=== PATIENT | female | born 1940 | race Caucasian/White ===

== ENCOUNTER 2017-08-13 14:32 | Emergency (ER) | payer MEDICARE, OTHER ==
--- NOTE | 2017-08-13 14:37 | ER Document Report ---
ED Fall - General Chief Complaint: Fall Stated Complaint: FALL/FACE INJURY Time Seen by Provider: 08/13/17 14:37 Notes: This is a 76-year-old female patient with some dementia who was found in her carport. Does not remember what happens. She does know that she fell but does not know how long she was down. Denies loss of consciousness. Recent diagnosis of dementia was given. Patient complaining of pain in her nose and forehead as well as her right wrist. Denies any other pain. States that she had difficulty getting up but denies any pain in her hips, back, chest, legs. Patient was evaluated by EMS. Collar was placed. Patient was transported by EMS from [facility] in stable condition. Denies any other associated signs or symptoms. TRAVEL OUTSIDE OF THE [place] IN LAST 30 DAYS: No - Related data Allergies/Adverse Reactions: No Known Allergies Allergy (Unverified 08/13/17 16:07) Past Medical History - General Information source: Patient, Relative - Social History Smoking Status: Never Smoker Family History: Reviewed & Not Pertinent Endocrine Medical History: Reports: Other - Sjogren's disease Review of Systems - Review of Systems Constitutional: No symptoms reported EENT: No symptoms reported, Other - Pain in the forehead, pain on the nose lacerations Cardiovascular: No symptoms reported Respiratory: No symptoms reported Gastrointestinal: No symptoms reported Genitourinary: No symptoms reported Female Genitourinary: No symptoms reported Musculoskeletal: No symptoms reported, Other - Pain and deformity on the right wrist Skin: No symptoms reported, Other - Lacerations mentioned above Hematologic/Lymphatic: No symptoms reported Neurological/Psychological: No symptoms reported, Other - Dementia new diagnosis Physical Exam - Vital signs Interpretation: Normal - General General appearance: Appears well, Alert - HEENT Head: Normocephalic, Atraumatic Eyes: Normal Conjunctiva: Normal Extraocular movements intact: Yes Pupils: PERRL Sinus: Other - There is a contusion with laceration on the frontal's forehead scalp Nasal: Other - There is a 1 cm superficial linear laceration across the bridge of the nose Mouth/Lips: Normal Mucous membranes: Normal Pharynx: Normal Neck: Normal - Respiratory Respiratory status: No respiratory distress Chest status: Nontender Breath sounds: Normal Chest palpation: Normal - Cardiovascular Rhythm: Regular Heart sounds: Normal auscultation Murmur: No - Abdominal Inspection: Normal Distension: No distension Bowel sounds: Normal Tenderness: Nontender Organomegaly: No organomegaly - Back Back: Normal, Nontender - Extremities General upper extremity: Tender, Edema, Normal color, Normal temperature, Other - There is obvious deformity noted at the right distal radius and ulna. Radial and ulnar pulses intact. Left upper extremity normal.. No: Normal ROM General lower extremity: Normal inspection, Nontender, Normal color, Normal ROM , Normal temperature, Normal weight bearing. No: Jermaine's sign - Neurological Neuro grossly intact: Yes Cognition: Normal Orientation: AAOx4 Kendall Coma Scale Eye Opening: Spontaneous Amanda Coma Scale Verbal: Oriented Kendall Coma Scale Motor: Obeys Commands Amanda Coma Scale Total: 15 Speech: Normal Motor strength normal: LUE, RUE, LLE, RLE Sensory: Normal - Psychological Associated symptoms: Normal affect, Normal mood - Skin Skin Temperature: Warm - Laceration noted to the nose and forehead Skin Moisture: Dry Skin Color: Normal Course - Re-evaluation Re-evalutation: 08/13/17 14:[address] head, face and C-spine. X-ray right wrist. Labs. Tetanus update , patient denies any pain at this time. Will likely need some laceration repair work done. 08/13/17 18:48 Lacerations were repaired to the forehead and the nasal bridge. Splint was applied to the right upper extremity. Reevaluation after splint placement reveals good capillary refill and moving fingers. Sensation intact. No complications. Will give follow-up information for orthopedic surgery at our facility. Have advised to have somebody with the patient at all times for the next 24 hours to check neuro checks. Family is comfortable with this plan. They have a caregiver that spends the whole day with her and they have somebody that comes and checks on her at night as well. They will continue to evaluate her at home. Instructed to have the lacerations evaluated in 5-7 days for suture removal. Due to the fact that there is a fracture of the nasal bone will give follow-up information for ENT as well. - Laboratory Result Diagrams: 08/13/17 16:35 08/13/17 16:35 Laboratory results interpreted by me: 08/13/17 08/13/17 08/13/17 15:33 16:35 16:35 Plt Count 149 L Seg Neutrophils % 79.3 H Lymphocytes % 10.0 L AST 78 H ALT 61 H Creatine Kinase 944 H CK-MB (CK-2) Urine Ketones TRACE H 08/13/17 16:35 Plt Count Seg Neutrophils % Lymphocytes % AST ALT Creatine Kinase CK-MB (CK-2) 6.75 H Urine Ketones - Diagnostic Test Radiology reviewed: Reports reviewed Procedures - Laceration/Wound Repair Face Time completed: 18:45 Wound length (cm): 1 Wound's Depth, Shape: Flap Laceration pre-procedure: Sterile PPE donned, Shur-Clens applied Anesthetic type: 1% Lidocaine Volume Anesthetic (mLs): 250 Wound explored: Clean, No foreign body removed Wound Debrided: Moderate Wound Repaired With: Sutures Suture Size/Type: 5:0, Ethilon - 3 sutures placed. Laceration was present across the nasal bridge. Comp occasions. Patient tolerated procedure well Number of Sutures: 3 Post-procedure wound care: Sterile dressing applied Head Time completed: 18:46 Wound length (cm): 1.5 Wound's Depth, Shape: Flap, Stellate Laceration pre-procedure: Chloraprep applied, Sterile drapes applied, Shur- Clens applied Anesthetic type: 1% Lidocaine Volume Anesthetic (mLs): 5 Wound explored: Clean, No foreign body removed Irrigated w/ Saline (mLs): 250 Wound Debrided: Moderate Wound Repaired With: Sutures Suture Size/Type: 5:0, Ethilon Number of Sutures: 6 Layer Closure?: No Post-procedure wound care: Sterile dressing applied Discharge - Discharge Clinical Impression: Facial laceration, Fracture of right distal radius, Forehead laceration, Nasal fracture Condition: Good Disposition: HOME, SELF-CARE Instructions: Antibiotic Ointment Protection ([facility]), Laceration Care ([facility]), Tetanus Immunization Given ([facility]) Additional Instructions: Laceration Care Your laceration has been sutured to keep the skin edges aligned during healing. The time of suture removal depends on the nature and location of your cut. Please follow the care instructions the doctor has outlined for you and return for further care, according to the schedule you've been given. Keep the wound and dressing clean. Unless you were told otherwise, you may shower daily, blotting the wound dry with a clean, unused towel. At other times, If the dressing gets wet or blood soaked, remove it and blot the wound dry, then reapply a new dressing. Unless you were instructed otherwise, dressings should be changed at least daily. If any signs of infection occur (swelling, redness, increasing tenderness, red streaks, tender lumps in the armpit or groin above the laceration, or fever) , see the doctor immediately. Fracture of the Nose You have a fractured nose. The examination shows no evidence that the nose needs to be "set" or operated on. However, the physician must recheck the nose once the swelling has decreased. The final decision about straightening of the bones or surgery can be made once the swelling resolves. This usually takes three to five days. Rest in a reclining chair. Cold pack the nose for the next 24 to 36 hours. Do not blow the nose. This may increase the swelling or cause further bleeding. If you have painful swelling inside the nose or exquisite tenderness when the tip of the nose is touched, you should call the doctor at once or return for re-evaluation. You should also contact the doctor if you develop fever, purulent nasal drainage, increasing pain in the face, or problems with vision. You have a nasal bone fracture with a laceration. It will be important that you follow-up with ENT if the laceration and the wound is not healing well. Please contact Dr. Salas's office at [facility] for follow-up if needed Fractured Radius The bone called the radius is fractured. This type of fracture is typically caused by falling onto the outstretched hand. The fracture is not serious, however, and should heal well with adequate protection. Your physician 's evaluation shows the bone is in good position to heal. A cast or splint is used to protect the fracture. For the first few days after the injury, the arm should be elevated and ice packed. Healing takes from three to eight weeks, depending on the age of the patient and the seriousness of the fracture. Your doctor has explained the treatment plan. It's important that you follow up as instructed to prevent complications. Call the doctor or return at once if severe pain or swelling occur, or if the hand becomes numb, swollen, or discolored. It will be very important that you follow-up with an orthopedic surgeon. Please call Tuesday to schedule a urgent follow-up. Prescriptions: Cephalexin Monohydrate [Keflex 500 mg Capsule] 500 mg PO Q6H 5 Days #20 capsule Referrals: MARIA E YEH MD [Primary Care Provider] - Follow up as needed [facility] [Provider Group] - Follow up as needed KRISTOPHER BRICE DO [ASSOCIATE] - Follow up as needed
[2017-08-13] MEDS ORDERED: DIPH/PERTUSS(ACELL)/TETANUS VAC/PF 0.5 ML SYR (>=10YO) IM ONE (14:52)
--- NOTE | 2017-08-13 15:24 | RADIOLOGY REPORT (SQ) ---
EXAM DESCRIPTION: CT HEAD WITHOUT COMPLETED DATE/TIME: 08/13/2017 3:16 pm REASON FOR STUDY: bed [address] wren s/p fall COMPARISON: None. TECHNIQUE: Axial images acquired through the brain without intravenous contrast. Images reviewed wi th bone, brain and subdural windows. Images stored on PACS. All CT scanners at this facility use dose modulation, iterative reconstruction, and/or weight based d osing when appropriate to reduce radiation dose to as low as reasonably achievable (ALARA). [facility]: Dose Right [facility]: CareDose [facility]: Dose Right [facility]: Teradose 4D [facility]: [employer] RADIATION DOSE: Up-to-date CT equipment and radiation dose reduction techniques were employed. CTDIv ol: 64.6 mGy. DLP: 1163 mGy-cm. mGy. LIMITATIONS: None. FINDINGS: VENTRICLES: Prominent. CEREBRUM: No masses. No hemorrhage. No midline shift. Areas of low density in the white matter mos t likely due to chronic micro-vascular ischemic change. No evidence for acute infarction. CEREBELLUM: No masses. No hemorrhage. No alteration of density. No evidence for acute infarction. EXTRAAXIAL SPACES: Mild age-related involutional change. No fluid collections. No masses. ORBITS AND GLOBE: No intra- or extraconal masses. Normal contour of globe without masses. CALVARIUM: No fracture. PARANASAL SINUSES: No fluid or mucosal thickening. SOFT TISSUES: Frontal scalp hematoma. OTHER: Right anterior nasal bone fracture. IMPRESSION: SCALP HEMATOMA. NO ACUTE INTRACRANIAL PROCESS. RIGHT ANTERIOR NASAL BONE FRACTURE. EVIDENCE OF ACUTE STROKE: NO. TECHNICAL DOCUMENTATION: JOB ID: [id number] Quality ID # 436: Final reports with documentation of one or more dose reduction techniques (e.g., Au tomated exposure control, adjustment of the mA and/or kV according to patient size, use of iterative reconstruction technique) 2010 [employer]- All Rights Reserved
--- NOTE | 2017-08-13 15:25 | RADIOLOGY REPORT (SQ) ---
EXAM DESCRIPTION: CT FACIAL AREA WITHOUT COMPLETED DATE/TIME: 08/13/2017 3:16 pm REASON FOR STUDY: bed [address] wren s/p fall COMPARISON: None. TECHNIQUE: Noncontrasted images through the facial bones and orbits windowed for bone and soft tissu e. Additional coronal and sagittal reconstructed images reviewed. All images stored on PACS. All CT scanners at this facility use dose modulation, iterative reconstruction, and/or weight based d osing when appropriate to reduce radiation dose to as low as reasonably achievable (ALARA). [facility]: Dose Right [facility]: CareDose [facility]: Dose Right [facility]: Teradose 4D [facility]: [employer] RADIATION DOSE: Up-to-date CT equipment and radiation dose reduction techniques were employed. CTDIv ol: 30.4 mGy. DLP: 536 mGy-cm. mGy. LIMITATIONS: None. FINDINGS: FACIAL BONES: Mildly displaced right anterior nasal bone fracture. Otherwise intact. ORBITS: Intact. No fracture. Symmetric intact globes and retroorbital soft tissues. PARANASAL SINUSES: Clear. No significant mucosal thickening, mass or fluid. No nasal polyps. Maxill fransisco sinus outlets are patent. SOFT TISSUES: Associated soft tissue swelling. INFERIOR BRAIN: Limited view. No acute findings. OTHER: No other significant finding. IMPRESSION: RIGHT ANTERIOR NASAL BONE FRACTURE. FACIAL BONE STRUCTURES OTHERWISE INTACT. TECHNICAL DOCUMENTATION: JOB ID: [id number] Quality ID # [id number]: Final reports with documentation of one or more dose reduction techniques (e.g., Au tomated exposure control, adjustment of the mA and/or kV according to patient size, use of iterative reconstruction technique) 2010 [employer]- All Rights Reserved
--- NOTE | 2017-08-13 15:25 | RADIOLOGY REPORT (SQ) ---
EXAM DESCRIPTION: CT CERVICAL SPINE WITHOUT COMPLETED DATE/TIME: 08/13/2017 3:16 pm REASON FOR STUDY: bed [address] wren s/p fall COMPARISON: None. TECHNIQUE: Axial images acquired through the cervical spine without intravenous contrast. Images re viewed with lung, soft tissue and bone windows. Reconstructed coronal and sagittal MPR images review ed. Images stored on PACS. All CT scanners at this facility use dose modulation, iterative reconstruction, and/or weight based d osing when appropriate to reduce radiation dose to as low as reasonably achievable (ALARA). [facility]: Dose Right [facility]: CareDose [facility]: Dose Right [facility]: Teradose 4D [facility]: [employer] RADIATION DOSE: Up-to-date CT equipment and radiation dose reduction techniques were employed. CTDIv ol: 7.6 mGy. DLP: 178 mGy-cm. mGy. LIMITATIONS: None. FINDINGS: ALIGNMENT: Anatomic. MINERALIZATION: Normal. VERTEBRAL BODIES: No fractures or dislocation. DISCS: Multilevel disc space narrowing with osteophytes. FACETS, LATERAL MASSES, POSTERIOR ELEMENTS: Facet arthropathy. No fractures. No dislocation. No ac ankit findings. HARDWARE: None in the spine. VISUALIZED RIBS: No fractures. LUNG APICES AND SOFT TISSUES: No significant or acute findings. OTHER: No other significant finding. IMPRESSION: CHRONIC DEGENERATIVE CHANGES. NO ACUTE FINDINGS. TECHNICAL DOCUMENTATION: JOB ID: [id number] Quality ID # 436: Final reports with documentation of one or more dose reduction techniques (e.g., Au tomated exposure control, adjustment of the mA and/or kV according to patient size, use of iterative reconstruction technique) 2010 [employer]- All Rights Reserved
--- NOTE | 2017-08-13 15:35 | RADIOLOGY REPORT (SQ) ---
EXAM DESCRIPTION: WRIST RIGHT 3 VIEWS COMPLETED DATE/TIME: 08/13/2017 3:28 pm REASON FOR STUDY: fall COMPARISON: None. NUMBER OF VIEWS: Three views. TECHNIQUE: AP, lateral, and oblique radiographic images acquired of the right wrist. LIMITATIONS: None. FINDINGS: MINERALIZATION: Normal. BONES: Comminuted intra-articular fracture of the distal radius with mild impaction and dorsal angula tion. Bones otherwise intact. 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 SOFT TISSUES: Soft tissue swelling. OTHER: No other significant finding. IMPRESSION: INTRA-ARTICULAR DISTAL RADIAL FRACTURE ABOVE. TECHNICAL DOCUMENTATION: JOB ID: [id number] [employer]- All Rights Reserved
[2017-08-13] MEDS ORDERED: LIDOCAINE 1% INJ-PF (10 MG/ML) 30 ML SDV INJ ONE (16:00)
[2017-08-13] MEDS ORDERED: CEFAZOLIN INJ 1 GM VIAL IV ONE (16:02)
[2017-08-13 16:53] LABS: ABSOLUTE LYMPHOCYTES (AUTO) 0.8 10^3/uL (0.5-4.7); ABSOLUTE MONOCYTES (AUTO) 0.8 10^3/uL (0.1-1.4); ABSOLUTE NEUT (AUTO) 6.4 10^3/uL (1.7-8.2); BASOPHILS % (AUTO) 0.2 % (0-2); EOSINOPHILS % (AUTO) 0.2 % (0-6); HEMATOCRIT 36.5 % (36.0-47.0); HEMOGLOBIN 12.5 g/dL (12.0-15.5); MEAN CORPUSCULAR HEMOGLOBIN 32.2 pg (27.0-33.4); MEAN CORPUSCULAR HGB CONC 34.2 g/dL (32.0-36.0); MEAN CORPUSCULAR VOLUME 94 fl (80-97); MONOCYTES % (AUTO) 10.3 % (3-13); RED BLOOD COUNT 3.88 10^6/uL (3.72-5.28); RED CELL DISTRIBUTION WIDTH 13.2 % (11.5-14.0); SEGMENTED NEUTROPHILS % (AUTO) 79.3 % (42-78); WHITE BLOOD COUNT 8.1 10^3/uL (4.0-10.5)
[2017-08-13 17:07] LABS: ALANINE AMINOTRANSFERASE 61 U/L (9-52); ALBUMIN 3.9 g/dL (3.5-5.0); ALKALINE PHOSPHATASE 111 U/L (38-126); ANION GAP 11 (5-19); ASPARTATE AMINO TRANSFERASE 78 U/L (14-36); BILIRUBIN,DIRECT 0.3 mg/dL (0.0-0.4); BILIRUBIN,TOTAL 0.8 mg/dL (0.2-1.3); BLOOD UREA NITROGEN 17 mg/dL (7-20); CALCIUM 9.7 mg/dL (8.4-10.2); CARBON DIOXIDE 26 mmol/L (22-30); CHLORIDE 102 mmol/L (98-107); CREATINE KINASE 944 U/L (30-135); GLUCOSE 101 mg/dL (75-110); POTASSIUM 4.1 mmol/L (3.6-5.0); SODIUM 139.4 mmol/L (137-145); TOTAL PROTEIN 7.2 g/dL (6.3-8.2)
[2017-08-13 17:19] LABS: CREATINE KINASE MB 6.75 ng/mL (<4.55)
[2017-08-13 17:22] LABS: TROPONIN I < 0.012 ng/mL
[2017-08-13 17:56] LABS: APPEARANCE,URINE CLEAR; BILIRUBIN,URINE NEGATIVE (NEGATIVE); GLUCOSE, URINE NEGATIVE (NEGATIVE); KETONES,URINE TRACE mg/dL (NEGATIVE); LEUKOCYTE ESTERASE,URINE NEGATIVE (NEGATIVE); NITRITE,URINE NEGATIVE (NEGATIVE); PROTEIN,URINE NEGATIVE (NEGATIVE); URINE SPECIFIC GRAVITY 1.012; UROBILINOGEN,URINE NEGATIVE mg/dL (<2.0)
[2017-08-13] MEDS ORDERED: LIDOCAINE 1% INJ-PF (10 MG/ML) 30 ML SDV ONE (18:21)
[2017-08-13 19:21] VITALS: BP 149/78
== END 2017-08-13 19:09 | disposition home or self-care (01) ==
LOC: ER 14:32
PROC: 0HQ1XZZ Repair Face Skin, External Approach (ICD-10-PCS; principal; 2017-08-13)
DX: S01.81XA Laceration without foreign body of other part of head, initial encounter (principal); S52.501A Unspecified fracture of the lower end of right radius, initial encounter for closed fracture; S02.2XXA Fracture of nasal bones, initial encounter for closed fracture; W19.XXXA Unspecified fall, initial encounter
CPT/HCPCS: 99284; 90471; 96365; 36415; 87040; 82553; 82550; 85025; 80053; 81001; 84484; 73110; 70450; 70486; 72125; 90715; 12011; J0690; J3490

== ENCOUNTER 2017-09-20 08:12 | Emergency (ER) | payer MEDICARE, OTHER ==
[2017-09-20] MEDS ORDERED: ASPIRIN 81 MG TABLET, CHEWABLE PO ONE (08:16)
[2017-09-20 08:44] LABS: ABSOLUTE EOSINOPHILS # (AUTO) 0.1 10^3/uL (0.0-0.6); ABSOLUTE LYMPHOCYTES (AUTO) 0.9 10^3/uL (0.5-4.7); ABSOLUTE MONOCYTES (AUTO) 1.3 10^3/uL (0.1-1.4); ABSOLUTE NEUT (AUTO) 6.6 10^3/uL (1.7-8.2); BASOPHILS % (AUTO) 0.5 % (0-2); EOSINOPHILS % (AUTO) 1.2 % (0-6); HEMOGLOBIN 12.4 g/dL (12.0-15.5); HGB HCT DIFFERENCE 1.2; LYMPHOCYTES % (AUTO) 9.6 % (13-45); MEAN CORPUSCULAR HEMOGLOBIN 32.8 pg (27.0-33.4); MEAN CORPUSCULAR HGB CONC 34.5 g/dL (32.0-36.0); MEAN CORPUSCULAR VOLUME 95 fl (80-97); MONOCYTES % (AUTO) 14.2 % (3-13); RED BLOOD COUNT 3.78 10^6/uL (3.72-5.28); RED CELL DISTRIBUTION WIDTH 13.1 % (11.5-14.0); SEGMENTED NEUTROPHILS % (AUTO) 74.5 % (42-78); WHITE BLOOD COUNT 8.9 10^3/uL (4.0-10.5)
[2017-09-20 08:50] LABS: PROTHROMBIN TIME 12.5 SEC (11.4-15.4)
--- NOTE | 2017-09-20 08:57 | RADIOLOGY REPORT (SQ) ---
EXAM DESCRIPTION: CHEST SINGLE VIEW COMPLETED DATE/TIME: 09/20/2017 8:40 am REASON FOR STUDY: CP COMPARISON: Chest CT scan dated February 2016 EXAM PARAMETERS: NUMBER OF VIEWS: One view. TECHNIQUE: Single frontal radiographic view of the chest acquired. RADIATION DOSE: NA LIMITATIONS: None. FINDINGS: LUNGS AND PLEURA: No opacities, masses or pneumothorax. No pleural effusion. Chronic appe aring pleuroparenchymal changes are identified which were present on the previous chest CT scan. Aga in there is obstructive lung disease. MEDIASTINUM AND HILAR STRUCTURES: No masses. Contour normal. HEART AND VASCULAR STRUCTURES: Heart normal in size. Normal vasculature. BONES: No acute findings. HARDWARE: None in the chest. OTHER: No other significant finding. IMPRESSION: No acute changes. Chronic appearing changes as noted above. Again there is evidence fo r obstructive lung disease. Other findings as noted above TECHNICAL DOCUMENTATION: JOB ID: [id number] [employer]- All Rights Reserved
--- NOTE | 2017-09-20 08:58 | ER Document Report ---
ED Cardiac - General Mode of Arrival: Ambulatory Information source: Patient TRAVEL OUTSIDE OF THE [place] IN LAST 30 DAYS: No <ZEE MCKINNEY - Last Filed: 09/20/17 10:33> <YANNA WASHINGTON - Last Filed: 09/20/17 15:26> - General Chief Complaint: Chest Pain Stated Complaint: CHEST PAIN Time Seen by Provider: 09/20/17 08:16 Notes: Patient is a 77 year old female that presents to the emergency department today with complaints of chest pain with associated shortness of breath which began prior to arrival. Patient states since arrival here she has been pain free and is no longer short of breath. Family at bedside mentions that the patient had nausea and vomiting this weekend which has since subsided. Family attributes this to the patient being started on a new medication. (ZEE MCKINNEY) - Related Data Allergies/Adverse Reactions: No Known Allergies Allergy (Unverified 08/13/17 16:07) Home Medications: Current Home Medications Diphenhydramine HCl [Sleeping Tablet] 25 mg PO QHS 09/20/17 [History] L.acidoph,Paracasei, B.lactis [Probiotic] 1 each PO DAILY 09/20/17 [History] Levothyroxine Sodium 75 mcg PO DAILY 09/20/17 [History] Ondansetron [Ondansetron Odt] 8 mg PO DAILY 09/20/17 [History] Past Medical History - General Information source: Patient - Social History Smoking Status: Never Smoker Cigarette use (# per day): No Frequency of alcohol use: None Drug Abuse: None Lives with: Family Family History: Reviewed & Not Pertinent - Medical History Medical History: Negative Past Surgical History: Reports: Hx Abdominal Surgery - tumor removal <ZEE MCKINNEY - Last Filed: 09/20/17 10:33> Review of Systems - Review of Systems Constitutional: No symptoms reported EENT: No symptoms reported Cardiovascular: See HPI, Chest pain - currently pain free Respiratory: See HPI, Short of breath Gastrointestinal: No symptoms reported Genitourinary: No symptoms reported Female Genitourinary: No symptoms reported Musculoskeletal: No symptoms reported Skin: No symptoms reported Hematologic/Lymphatic: No symptoms reported Neurological/Psychological: No symptoms reported -: Yes All other systems reviewed and negative <ZEE MCKINNEY - Last Filed: 09/20/17 10:33> Physical Exam - Vital signs Interpretation: Normal - General General appearance: Appears well, Alert - HEENT Head: Normocephalic, Atraumatic Eyes: Normal Pupils: PERRL - Respiratory Respiratory status: No respiratory distress Chest status: Nontender Breath sounds: Normal Chest palpation: Normal - Cardiovascular Rhythm: Regular Heart sounds: Normal auscultation Murmur: No - Abdominal Inspection: Normal Distension: No distension Bowel sounds: Normal Tenderness: Nontender Organomegaly: No organomegaly - Back Back: Normal, Nontender - Extremities General upper extremity: Normal inspection, Nontender, Normal color, Normal ROM , Normal temperature General lower extremity: Normal inspection, Nontender, Normal color, Normal ROM , Normal temperature, Normal weight bearing. No: Jermaine's sign - Neurological Neuro grossly intact: Yes Cognition: Confused - At baseline Amanda Coma Scale Eye Opening: Spontaneous Masterson Coma Scale Verbal: Oriented Masterson Coma Scale Motor: Obeys Commands Amanda Coma Scale Total: 15 Speech: Normal Motor strength normal: LUE, RUE, LLE, RLE Sensory: Normal - Psychological Associated symptoms: Normal affect, Normal mood - Skin Skin Temperature: Warm Skin Moisture: Dry Skin Color: Normal <YANNA WASHINGTON - Last Filed: 09/20/17 15:26> - Vital signs Vitals: Temp Pulse Ox 97.1 F 99 09/20/17 08:17 09/20/17 08:17 Course - Laboratory Result Diagrams: 09/20/17 08:30 09/20/17 08:30 <ZEE MCKINNEY - Last Filed: 09/20/17 10:33> - Laboratory Result Diagrams: 09/20/17 08:30 09/20/17 08:30 - Diagnostic Test Radiology reviewed: Reports reviewed - EKG Interpretation by [place] EKG shows normal: Sinus rhythm Rate: Normal Rhythm: NSR <YANNA WASHINGTON - Last Filed: 09/20/17 15:26> - Re-evaluation Re-evalutation: 09/20/17 Patient is a 77-year-old female who had a brief complaint of chest pain this morning. Patient has had no further complaints of chest pain here in the emergency department. Patient has 2 negative troponins, no acute findings on EKG or other blood work. No evidence for any acute process on chest x-ray. Patient appears well with stable vitals. She is to follow up with her doctor tomorrow as scheduled. Stable for discharge. Return immediately if any worsening or concerning symptoms. Patient and daughter agree with this plan. ( YANNA WASHINGTON) - Vital Signs Vital signs: Temp Pulse Resp BP Pulse Ox 98.1 F 24 H 140/77 H 100 09/20/17 13:45 09/20/17 13:45 09/20/17 13:45 09/20/17 13:45 - Laboratory Laboratory results interpreted by me: 09/20/17 09/20/17 08:30 08:30 Lymphocytes % 9.6 L Monocytes % 14.2 H Carbon Dioxide 31 H Discharge <ZEE MCKINNEY - Last Filed: 09/20/17 10:33> <YANNA WASHINGTON - Last Filed: 09/20/17 15:26> - Discharge Clinical Impression: Atypical chest pain Condition: Stable Disposition: HOME, SELF-CARE Additional Instructions: Please follow-up with your doctor tomorrow as scheduled. Scribe Attestation: 09/20/17 15:26 I personally performed the services described in the documentation, reviewed and edited the documentation which was dictated to the scribe in my presence, and it accurately records my words and actions. (YANNA WASHINGTON) Scribe Documentation - Scribe Written by Lesly:: Lesly Noble, 09/20/2017 1033 acting as scribe for :: Surinder <ZEE MCKINNEY - Last Filed: 09/20/17 10:33>
[2017-09-20 09:02] LABS: ALANINE AMINOTRANSFERASE 32 U/L (9-52); ALBUMIN 3.9 g/dL (3.5-5.0); ALKALINE PHOSPHATASE 97 U/L (38-126); ANION GAP 9 (5-19); ASPARTATE AMINO TRANSFERASE 27 U/L (14-36); BILIRUBIN,DIRECT 0.3 mg/dL (0.0-0.4); BILIRUBIN,TOTAL 0.5 mg/dL (0.2-1.3); BLOOD UREA NITROGEN 15 mg/dL (7-20); CALCIUM 9.3 mg/dL (8.4-10.2); CARBON DIOXIDE 31 mmol/L (22-30); CHLORIDE 98 mmol/L (98-107); CREATINE KINASE 46 U/L (30-135); CREATININE RESULT 0.67 mg/dL (0.52-1.25); GLUCOSE 93 mg/dL (75-110); POTASSIUM 3.9 mmol/L (3.6-5.0); SODIUM 138.4 mmol/L (137-145); TOTAL PROTEIN 6.8 g/dL (6.3-8.2)
[2017-09-20 09:15] LABS: CREATINE KINASE MB 1.76 ng/mL (<4.55)
[2017-09-20 09:18] LABS: TROPONIN I < 0.012 ng/mL
[2017-09-20 09:37] LABS: AMORPHOUS SEDIMENT,URINE 1+ /HPF; APPEARANCE,URINE SLIGHTLY-CLOUDY; BILIRUBIN,URINE NEGATIVE (NEGATIVE); GLUCOSE, URINE NEGATIVE (NEGATIVE); KETONES,URINE NEGATIVE (NEGATIVE); LEUKOCYTE ESTERASE,URINE NEGATIVE (NEGATIVE); NITRITE,URINE NEGATIVE (NEGATIVE); PROTEIN,URINE NEGATIVE (NEGATIVE); URINE SPECIFIC GRAVITY 1.011; UROBILINOGEN,URINE NEGATIVE mg/dL (<2.0)
--- NOTE | 2017-09-20 09:40 | EKG REPORT ---
SEVERITY:- ABNORMAL ECG - SINUS RHYTHM RAA, CONSIDER BIATRIAL ABNORMALITIES CONSIDER LEFT VENTRICULAR HYPERTROPHY : Confirmed by: Carmelo Bianchi 20-Sep-2017 09:39:29
[2017-09-20 13:54] VITALS: BP 140/77
== END 2017-09-20 13:54 | disposition home or self-care (01) ==
LOC: ER 08:12
DX: R07.89 Other chest pain (principal); R06.02 Shortness of breath
CPT/HCPCS: 93005; 99285; 36415; 82553; 82550; 84443; 85025; 85610; 80053; 81001; 84484; 71010; 93010; A9270